=== PATIENT | female | born 1995 | race Caucasian/White ===

== ENCOUNTER 2018-11-23 17:31 | Emergency (ER) | payer OTHER ==
[2018-11-23] MEDS: HYDROCODONE/APAP (5/325) TAB PO (20:24)
== END 2018-11-23 22:12 | disposition home or self-care (01) ==
LOC: FTE 17:31
DX: M25.562 Pain in left knee (principal); R51 Headache; J45.909 Unspecified asthma, uncomplicated
CPT/HCPCS: 29505; 73562; 99283-25